=== PATIENT | male | born 1965 | race Caucasian/White ===

== ENCOUNTER 2021-02-06 15:51 | Outpatient (REF) | payer OTHER, SELFPAY ==
[2021-02-06 18:00] LABS: Erythrocyte Sedimentation Rate 2 MM/HR (0-15)
[2021-02-07 03:58] LABS: Estimated Average Glucose 212 mg/dL
[2021-02-11 23:37] LABS: Acetylcholine Recep Modulating 20
[2021-02-13 22:21] LABS: Acetylcholine Receptor Binding <0.30 nmol/L
== END 2021-02-06 15:52 | disposition home or self-care (01) ==
LOC: HO.LAB 15:51
PROVIDERS: PCP Internal Medicine; Visit Provider Psychiatry & Neurology Neurology
DX: H53.2 Diplopia (principal)
CPT/HCPCS: 36415; 82550; 83036; 83519; 85652